=== PATIENT | female | born 1985 | race Caucasian/White ===

== ENCOUNTER 2020-02-22 19:02 | Outpatient (CLI) | payer OTHER, SELFPAY ==
[2020-02-22 19:36] VITALS: BMI 25.0
[2020-02-22 19:37] VITALS: TEMP 36.8
[2020-02-22 19:56] LABS: Bilirubin Urine Neg (Negative); Blood Urine Neg (Negative); Glucose Urine UA Norm (Normal); Ketones Urine Negative (Negative); Leukocyte Esterase Urine Negative (Negative); Nitrate Urine Negative (Negative); Protein Urine Neg (Negative); Specific Gravity, Urine 1.005 (1.005-1.030); Urine Appearance Clear (CLEAR); Urine Color Yellow (Yellow); Urobilinogen Urine Norm (Negative); pH Urine 7 (5-7)
[2020-02-22 19:57] VITALS: BP 124/63; PULSE 72; RESP 14
[2020-02-22 19:57] LABS: Add Urine Culture? No; Bacteria Urine TRACE /hpf; RBC Urine 0-4 /hpf (0-2); Squamous Epithelial Cell Urine 0-4 /hpf (0-5); WBC Urine 0-4 /hpf (0-5)
--- NOTE | 2020-02-22 20:03 | USR_ITS ---
PROCEDURE INFORMATION: Exam: US , Limited Exam date and time: 02/22/2020 9:09 PM Age: 34 years old Clinical indication: complicated by abdominal or pelvic pain; Left lower quadrant; Second trimester; Gestational age or lmp: [id number]; ; Additional info: Vaginal bleeding TECHNIQUE: Imaging protocol: Real-time ultrasound of the maternal uterus with image documentation. Exam focused on the clinical indication. COMPARISON: [facility] OB Follow up 07/19/2017 3:01 PM FINDINGS: Gestation: Single live intrauterine . heart rate: heart rate normal at 150 bpm. Placenta: Placenta is posterior and appears at least 8.9 mm from the internal cervical os on later exam images. MATERNAL: Cervix: Cervix is closed and normal length measuring 3.17 cm. US/US OB limited [id number] IMPRESSION: 1. Single live intrauterine . 2. Placenta is posterior and appears at least 8.9 mm from the internal cervical os on later exam images. 3. Cervix is closed and normal length measuring 3.17 cm. 4. heart rate normal at 150 bpm.
[2020-02-22 20:15] LABS: Basophils % 0.2 %; Eosinophils # 0.1 10^3/uL (0.0-0.8); Hematocrit 29.6 % (37.0-47.0); Hemoglobin 9.6 g/dL (11.5-15.3); Lymphocytes # 0.9 10^3/uL (0.8-4.8); Lymphocytes % 14.7 %; Mean Corpuscular HGB Conc 32.4 g/dL (30.0-36.0); Mean Corpuscular Hemoglobin 25.9 pg (28.0-34.0); Mean Corpuscular Volume 79.8 fL (81-99); Mean Platelet Volume 10.1 fL (7.4-10.4); Monocytes # 0.3 10^3/uL (0.2-0.9); Monocytes % 4.2 %; Neutrophils # 4.85 10^3/uL (1.8-7.7); Neutrophils % 78.4 %; Nucleated Red Blood Cells % 0 %; Platelet Count 171 10^3/cmm (130-400); Red Blood Count 3.71 10^6/uL (4.1-5.3); Red Cell Distribution Width 15.2 % (12.1-15.1); White Blood Count 6.2 10^3/uL (4.0-10.0)
[2020-02-22 21:34] VITALS: BP 121/65; PULSE 70; RESP 14; TEMP 36.8
[2020-02-23 06:44] VITALS: BP 121/65; PULSE 69
== END 2020-02-22 21:40 | disposition home or self-care (01) ==
LOC: OPOB 19:17 → OBGYN 21:33
PROVIDERS: PCP Obstetrics & Gynecology; Visit Provider Family Medicine
DX: O46.90 Antepartum hemorrhage, unspecified, unspecified trimester (principal); Z3A.00 Weeks of gestation of pregnancy not specified; R10.2 Pelvic and perineal pain
CPT/HCPCS: 36415; 76815; 81001; 85025; 99211

== ENCOUNTER 2020-07-11 23:30 | Inpatient (IN) | payer OTHER, SELFPAY ==
[2020-07-11 23:28] VITALS: BP 123/73; PULSE 83; TEMP 36.4
[2020-07-11 23:47] VITALS: RESP 17
[2020-07-11 23:48] VITALS: BMI 31.6
[2020-07-12] VITALS (57 sets, daily range): BP systolic 103–143; BP diastolic 53–72; PULSE 62–106; RESP 16; TEMP 36.3–36.8; O2SAT 92–100
[2020-07-12] MEDS: lactated ringers 1,000 ML 999 ML IV ×2 (00:05→01:06)
[2020-07-12 00:36] LABS: Basophils % 0.3 %; Eosinophils # 0.1 10^3/uL (0.0-0.8); Eosinophils % 0.6 %; Hematocrit 33.5 % (37.0-47.0); Hemoglobin 10.6 g/dL (11.5-15.3); Lymphocytes # 1.1 10^3/uL (0.8-4.8); Lymphocytes % 10.2 %; Mean Corpuscular HGB Conc 31.6 g/dL (30.0-36.0); Mean Corpuscular Hemoglobin 24.3 pg (28.0-34.0); Mean Corpuscular Volume 76.8 fL (81-99); Mean Platelet Volume 10.2 fL (7.4-10.4); Monocytes # 0.6 10^3/uL (0.2-0.9); Monocytes % 5.3 %; Neutrophils # 9.14 10^3/uL (1.8-7.7); Neutrophils % 82.3 %; Nucleated Red Blood Cells % 0 %; Platelet Count 183 10^3/cmm (130-400); Red Blood Count 4.36 10^6/uL (4.1-5.3); Red Cell Distribution Width 15.5 % (12.1-15.1); White Blood Count 11.1 10^3/uL (4.0-10.0)
--- NOTE | 2020-07-12 01:00 | ANES.PREANE2 ---
Pre-Anesthetic Assessment Pre-Anesthetic Assessment: Height/Weight: Height 1.65 m Weight 86.183 kg Temp Pulse Resp BP Pulse Ox 97.5 F L 68 17 107/56 92 07/12/20 02:12 07/12/20 02:25 07/11/20 23:47 07/12/20 02:22 07/12/20 02:25 Preop Diagnosis: IUP Was Beta Mica taken within 24 hours: N/A Was Clonidine taken within 24 hours: N/A Social: Social History: No alcohol and No tobacco Exam: Pre-Anes Outpt Exam: alert, oriented x 3 and clear to auscultation bilaterally Airway: Submandibular: WNL Cervical ROM: WNL MP: 1 History/ROS: No significant history except as noted Pulmonary: Pulmonary: None reported CV/HEM: CV/HEM: None reported : : None reported Hepatic: Hepatic: None reported GI: GI: None reported Metabolic: Metabolic: None reported Musc/skel: Musc/skel: None reported Neuropsych: Neuropsych: None reported Anesthetic Plan: ASA status: 1 Anesthesia: Anesthesia Evaluation Risk of > 500 ml blood loss (7ml/kg in children): No Meds/Allergies Current Medications: Current Medications Generic Name Dose Route Start Last Admin Trade Name Freq PRN Reason Stop Dose Admin Ropivacaine 200 mg in 100 mls @ 13 mls/hr 07/11/20 23:45 07/12/20 01:45 Naropin Premix EPIDURAL 13 mls/hr .[id number] JESSICA Administration Lactated Ringer's 1,000 mls @ 999 m ls/hr 07/12/20 00:05 07/12/20 00:05 Lactated Ringers IV 999 mls/hr .Q1H1M PRN Administration See label comment s Lactated Ringer's 1,000 mls @ 125 m ls/hr 07/12/20 01:05 07/12/20 01:33 Lactated Ringers IV 125 mls/hr .Q8H PRN Infusion labor PFS Anesthesia Female Reproductive History: : 4 Data Anesthesia CBC & Chem 7: 07/11/20 23:55 Other Labs: Laboratory Results - last 48 hr 07/11/20 23:55 WBC 11.1 H RBC 4.36 Hgb 10.6 L Hct 33.5 L MCV 76.8 L MCH 24.3 L MCHC 31.6 RDW 15.5 H Plt Count 183 MPV 10.2 Neut % (Auto) 82.3 Lymph % (Auto) 10.2 [place] % (Auto) 5.3 Eos % (Auto) 0.6 Baso % (Auto) 0.3 Neut # (Auto) 9.14 H Lymph # (Auto) 1.1 [place] # (Auto) 0.6 Eos # (Auto) 0.1 Baso # (Auto) 0.0 Nucleated RBC % (auto) 0 Nucleated RBCs # 0.0 Cardiac Studies: No Data to Display
--- NOTE | 2020-07-12 01:40 | ANES.PROC ---
Anesthesia Procedures Procedure/Date: 07/12/20 Epidural: Time Out Performed: Yes Consents Signed: Procedure Consent Consent: requested by attending/covering physician Lumbar Level: L4-L5 Epidural position: sitting Epidural procedure: sterile prep of area, 1% lidocaine to numb the area, 18 g needle, negative for paresthesia passed, neg for paresthesia, test dose given, 1.5% xylocaine 1:200k epi (3ml), placed PCEA, no systemic response, sterile dressing applied, L.U.D. no apparent complications and 0.2% Ropiavacaine @ mls/hr (13)
[2020-07-12] MEDS: dextrose 5%-lactated ringers 1,000 ML 999 ML IV (02:10)
[2020-07-12] MEDS: oxytocin 30 UNIT/500 ML BAG 600 UNIT IV (04:42)
--- NOTE | 2020-07-12 05:06 | P.PCNOB_ITS ---
Delivery Note: Date of delivery: July 12, 2020 This 34-year-old 4 now para 4 female went into active labor at home the evening prior to delivery. Check she began having contractions in the morning but the became stronger and closer together by early the morning of delivery. She arrived to [facility] OB department at approximately 5 cm dilated. She slowly dilated throughout the realtime captioner hours to complete cervical dilatation. She did receive epidural anesthesia. She had spontaneous rupture membranes of clear fluid followed by a bit of a D cells but that corrected itself. She delivered very quickly by spontaneous vaginal delivery healthy, viable female at 04 36. Upon delivery of the head, the mouth and nose were suctioned followed by delivery of the anterior shoulder followed by the posterior shoulder without problems. The infant was suctioned again and then placed on mother's abdomen where after approximately 1 minute the cord was clamped and the 's father cut the cord. There was no nuchal cord and the cord had 3 blood vessels. The placenta delivered spontaneously at 04 42 without problems. There was a midline second-degree vaginal and perineal laceration which was repaired using Vicryl suture and layered surgical closure. The weighed 8 pounds 2 ounces with Apgars of 8 and 10 at 1 and 5 minutes respectively. There were no complications and presently mother and are doing well. Pre-Delivery Course: This patient was followed by this physician throughout her entire course without problems or concerns. Maternal blood type was O+ with antibody screen negative. Hepatitis B hepatitis C, RPR and HIV were negative. Rubella was immune and group B strep and Covid were negative. Delivery: Spontaneous vaginal delivery. Post-Delivery Status: Patient is doing well and will be followed for routine postdelivery course. A&P Assessment and plan (1) Normal spontaneous vaginal delivery: Patient is doing quite well and plan to follow routine postdelivery care. We will adjust orders as necessary. Status: Acute Coding Level of Care Code Acute Superintendent Overhead Distribution for Estefany Cox Diagnoses Normal spontaneous vaginal delivery O80
[2020-07-12] MEDS: ibuprofen 800 mg tablet PO ×3 (09:05→21:24)
[2020-07-12] MEDS: docusate sodium 100 mg Capsule PO ×2 (09:05→19:27)
[2020-07-12] MEDS: prenatal vitamin Capsule 1 CAP PO (09:05)
[2020-07-12] MEDS: benzocaine-menthol 78 gm Canister 1 SPRAY TOPICAL (09:05)
[2020-07-12 18:32] LABS: Hematocrit 32.3 % (37.0-47.0); Hemoglobin 10.1 g/dL (11.5-15.3); Mean Corpuscular HGB Conc 31.3 g/dL (30.0-36.0); Mean Corpuscular Hemoglobin 24.3 pg (28.0-34.0); Mean Corpuscular Volume 77.6 fL (81-99); Mean Platelet Volume 10.4 fL (7.4-10.4); Platelet Count 187 10^3/cmm (130-400); Red Blood Count 4.16 10^6/uL (4.1-5.3); Red Cell Distribution Width 15.8 % (12.1-15.1); White Blood Count 9.7 10^3/uL (4.0-10.0)
[2020-07-13 04:09] VITALS: BP 116/56; PULSE 53; TEMP 36.1
--- NOTE | 2020-07-13 07:25 | PM.OBGYDC ---
Discharge Providers AUTOMOBILE WRECKER Date of Admission: 07/11/20 23:30 Date of Discharge: 07/13/20 Attending Provider at Admission: Lyle Matthews MD Attending Provider at Discharge: Lyle Matthews MD Primary Care Provider: [facility] Diagnoses at Discharge Discharge Diagnosis (1) Normal spontaneous vaginal delivery: Status: Acute Reason for Visit Reason for Visit: Contractions Hospital Course Hospital Course Patient delivered by spontaneous vaginal delivery early yesterday morning. She has done extremely well since that time with just mild lochia. The is breast-feeding well and actually her cluster fed last night. The patient is ambulating well and tolerating regular diet and is felt to be stable for discharge home. Information Peripartum Data: Infant Delivery Method: Vaginal Physical Exam Const: COMMON NORMALS: no acute distress, healthy appearing and well nourished Resp: COMMON NORMALS: normal respiratory effort, No retractions and No use of accessory muscles Cardio: COMMON NORMALS: regular rate and regular rhythm RATE: regular rate RHYTHM: regular rhythm GI: COMMON NORMALS: Normal to inspection, nondistended, normoactive bowel sounds present and non-tender (Fundus reported is firm below the umbilicus.) Extremity: COMMON NORMALS: normal to inspection, full ROM and no pedal edema Neuro: COMMON NORMALS: no focal motor deficits and no sensory deficits noted Psych: COMMON NORMALS: mental status grossly normal, Normal thought process present, cooperative and normal affect THOUGHT PROCESS: Normal thought process present Urinary Catheter Management^: Cramer Latex: Cath Placed During This Visit: yes, but has since been removed by the nurse Reason for Continuing Indwelling Catheter: Other Urinary Catheter Date of Insertion: 07/12/20 Urinary Catheter Time of Insertion: 02:00 Date Urinary Catheter Removed: 07/12/20 Time Urinary Catheter Discontinued: 04:30 Discharge Data Data Completed and Pending: Labs from last 24 hours 07/12/20 17:50 WBC 9.7 RBC 4.16 Hgb 10.1 L Hct 32.3 L MCV 77.6 L MCH 24.3 L MCHC 31.3 RDW 15.8 H Plt Count 187 MPV 10.4 Vitals: Last Vital Signs Temp 97.0 F L 07/13/20 04:09 Pulse 53 L 07/13/20 04:09 Resp 16 07/12/20 22:37 BP 116/56 07/13/20 04:09 Pulse Ox 98 03/15/21 19:20 Discharge Plan Discharge Patient Disposition: Home Condition: Stable Prescriptions: New docusate sodium [DOK] 100 mg Capsule 100 mg PO BID Qty: 60 RF: 1 ibuprofen 800 mg Tablet 800 mg PO TID Qty: 90 RF: 2 Continued PNV cmb#[id number]-ferrous fumarate-FA [] 28 mg iron- 800 mcg Tablet 1 tab PO DAILY RF: 0 ferrous sulfate [iron] 325 mg (65 mg iron) Tablet 325 mg PO DAILY RF: 0 Discharge Orders: Discharge Order (Routine); Ordered 07/13/20 Ordered By: Lyle Matthews Referrals: Lyle Matthews MD [Physician] - 6 Weeks Discharge Diet: Usual diet Discharge Activity: Resume usual activity Patient Instructions: Pre-eclampsia and Eclampsia (DC), Bleeding (DC), OB Discharge Report, OB Anesthesia Instructions, OB Food/Drug Interaction Guide, OB Home Care, OB Proud Parent Packet, OB Vaginal Deliveries Discharge Attestations AUTOMOBILE WRECKER Time Spent in Discharge Care*: less than 30 min Specific Discharge Activities: Specific discharge activities: educating patient, documenting/other paperwork and evaluating patient/reviewing data Coding Level of Care Code Acute Test Eng for Chg Fwd Diagnoses Normal spontaneous vaginal delivery O80
[2020-07-13] MEDS: ibuprofen 800 mg tablet PO (08:33)
[2020-07-13] MEDS: prenatal vitamin Capsule 1 CAP PO (08:33)
[2020-07-13] MEDS: docusate sodium 100 mg Capsule PO (08:33)
[2020-07-13 09:13] VITALS: BP 117/64; PULSE 69; TEMP 36.2
== END 2020-07-13 09:38 | disposition home or self-care (01) | DRG 807 ==
LOC: OPOB 07-12 00:07 → OBGYN 07-12 00:07
PROVIDERS: Admitting Provider Family Medicine; Visit Provider Family Medicine
DX: O70.1 Second degree perineal laceration during delivery (principal); Z37.0 Single live birth; Z3A.39 39 weeks gestation of pregnancy
CPT/HCPCS: 12345; 36415; 51702; 59025; 59409; 85025; 85027; 99211; J2795

== ENCOUNTER 2021-01-03 18:07 | Outpatient (CLI) | payer OTHER, SELFPAY ==
[2021-01-03 20:11] LABS: SARS Covid-2 Antigen Positive (Negative)
== END 2021-01-03 18:08 | disposition home or self-care (01) ==
LOC: OPOB 19:38
PROVIDERS: Visit Provider Family Medicine
DX: O26.899 Other specified pregnancy related conditions, unspecified trimester (principal); Z3A.00 Weeks of gestation of pregnancy not specified; Z20.822 Contact with and (suspected) exposure to COVID-19
CPT/HCPCS: 87426

== ENCOUNTER 2023-09-13 14:00 | Outpatient (CLI) | payer OTHER, SELFPAY | END 2023-09-13 14:01 | disposition home or self-care (01) | LOC: SPT 14:01 | PROVIDERS: Visit Provider Student in an Organized Health Care Education/Training Program | DX: S62.92XD Unspecified fracture of left hand, subsequent encounter for fracture with routine healing (principal); X58.XXXD Exposure to other specified factors, subsequent encounter | CPT/HCPCS: 97760; L3807 ==

== ENCOUNTER 2024-02-05 12:54 | Observation (INO) | payer OTHER, SELFPAY ==
[2024-01-14 10:20] LABS: Add Urine Microscopic? NO
[2024-01-14 10:24] LABS: Basophils % 0.3 %; Eosinophils # 0.1 10^3/uL (0.0-0.8); Eosinophils % 0.9 %; Hematocrit 36.7 % (36-47); Lymphocytes # 1.2 10^3/uL (0.8-4.8); Lymphocytes % 18.1 %; Mean Corpuscular Hemoglobin 26.7 pg (27-33); Mean Corpuscular Volume 80.8 fl (85-98); Mean Platelet Volume 9.4 fL (7.4-10.4); Monocytes # 0.4 10^3/uL (0.2-0.9); Neutrophils # 5.08 10^3/uL (1.8-7.7); Nucleated Red Blood Cells % 0 %; Platelet Count 206 10^3/cmm (157-399); Red Blood Count 4.54 10^6/uL (3.85-5.65); Red Cell Distribution Width 14.4 % (12.1-15.1); White Blood Count 6.86 10^3/uL (3.29-11.43)
[2024-01-14 10:26] LABS: Bilirubin Urine Neg (Negative); Blood Urine Neg (Negative); Glucose Urine UA Norm (Normal); Ketones Urine Negative (Negative); Leukocyte Esterase Urine Negative (Negative); Nitrate Urine Negative (Negative); Protein Urine Neg (Negative); Urine Appearance Clear (CLEAR); Urine Color Yellow (Yellow); Urobilinogen Urine Norm (Negative); pH Urine 8 (5-7)
[2024-01-14 10:27] LABS: Charge for UA Resulting for Rev
[2024-01-14 10:40] LABS: Alanine Aminotransferase 16 U/L (0-33); Albumin Level 4.3 g/dL (3.5-5.2); Alkaline Phosphatase 67 U/L (35-105); Anion Gap 12.5 (5-19); Aspartate Amino Transferase 18 U/L (0-32); Blood Urea Nitrogen 11 mg/dL (6-20); Calcium 8.7 mg/dL (8.5-10.5); Carbon Dioxide 26 mmol/L (22-29); Chloride 103 mmol/L (98-107); Globulin 2.7 g/dL (1.3-4.6); Glomerular Filtration Rate 81.2 mL/min (90-130); Glucose 96 mg/dL (65-115); Osmolality Calculated 283 mOsm/kg (285-295); Potassium 4.5 mmol/L (3.5-5.1); Sodium 137 mmol/L (136-145); Total Bilirubin 0.4 mg/dL (0.15-1.2)
--- NOTE | 2024-01-14 12:26 | P.ANESASSM_ITS ---
Pre-Anesthetic Assessment Height/Weight: Height 5 ft 5 in Preop Diagnosis: Desire permanent sterilization, stress urinary incontinence, rectocele Operation Date: 02/05/24 08:30 Proposed Procedures p Laparoscopic Salpingectomy 51915, 83394, 04869, Z30.2, N39.3, N81.6(Bilateral) - Herminio Cruz MD s Midurethral sling(Not Applicable) - MD hu Charles Perineorrhaphy(Not Applicable) - Herminio Cruz MD Social No alcohol and No tobacco Exam alert, oriented x 3, clear to auscultation bilaterally and regular rate & rhythm Airway Submandibular: within normal limits Cervical ROM: within normal limits Mallampati: Class II Dentition: full Anesthetic Plan ASA status: 1 Anesthesia: General Other: No history of anesthesia Plan to be n.p.o. after midnight Labs 01/14/2024 reviewed and assessable for surgery Patient denies any pulmonary or cardiac issues METs greater than 4, patient is a current OB nurse at [employer] Plan for GETA Medications/Allergies Home Medications Medication Instructions Recorded Confirmed Last Taken Type No Known Home Medications 09/20/23 01/14/24 Unknown History Allergies Allergy/AdvReac Type Severity Reaction Status Date / Time No Known Allergies Allergy Verified 01/14/24 09:56 [facility] Anesthesia Family History Grandfather Heart disease Mother Hypertension Brother Hypertension Sister Hypertension Denies family history of Colon cancer Ovarian cancer Diabetes Hyperlipidemia Breast cancer Uterine cancer Thyroid disease Stroke Social History Smoking and tobacco/nicotine status: never used tobacco/nicotine Data Anesthesia 01/14/24 10:10 01/14/24 10:10 Short CBC 01/14/24 Range/Units 10:10 WBC 6.86 (3.29-11.43) 10^3/uL Hgb 12.10 (11.27-16.99) g/dL Hct 36.7 (36-47) % MCV 80.8 L (85-98) fl Plt Count 206 (157-399) 10^3/cmm Neut % (Auto) 74.0 % Neut # (Auto) 5.08 (1.8-7.7) 10^3/uL BMP 01/14/24 10:10 Sodium 137 Potassium 4.5 Chloride 103 Carbon Dioxide 26 BUN 11 Creatinine 0.8 Glucose 96 Calcium 8.7 Liver Function 01/14/24 Range/Units 10:10 Total Bilirubin 0.4 (0.15-1.2) mg/dL AST 18 (0-32) U/L ALT 16 (0-33) U/L Alkaline Phosphatase 67 (35-105) U/L Albumin 4.3 (3.5-5.2) g/dL Urine 01/14/24 Range/Units 10:10 Urine Color Yellow (Yellow) Urine Appearance Clear (CLEAR) Urine pH 8 A (5-7) Ur Specific [place] 1.010 (1.005-1.030) Urine Protein Neg (Negative) Urine Glucose (UA) Norm (Normal) Urine Ketones Negative (Negative) Urine Nitrate Negative (Negative) Urine Bilirubin Neg (Negative) Ur Leukocyte Esterase Negative (Negative) Cardiac Studies: 2 No Data to Display
[2024-02-05] VITALS (14 sets, daily range): BP systolic 98–133; BP diastolic 51–77; PULSE 53–90; RESP 14–18; TEMP 36.2–37.2; O2SAT 96–100
[2024-02-05] MEDS: sodium chloride 0.9% 500 ML IV (08:50)
[2024-02-05] MEDS: sodium chloride 0.9% 1,000 ML 30 ML IV (08:50)
[2024-02-05] MEDS: ceFAZolin 2,000 mg SDV 2000 MG IVP (09:00)
[2024-02-05] MEDS: scopolamine 1.5 Patch 1 PATCH TRANSDERMA (09:03)
[2024-02-05] MEDS: metroNIDAZOLE IV 500 MG/100 ML PREMIX 100 MG IV (09:31)
[2024-02-05 09:36] LABS: OR HCG Qualitative Urine Negative (Negative)
--- NOTE | 2024-02-05 09:38 | ANES.PAUD2 ---
Pre-Anesthetic Update Pre-Anesthetic Assessment: Date of Surgery/Procedure: 02/05/24 Preop Diagnosis: Desire permanent sterilization, stress urinary incontinence, rectocele Proposed Procedure: Operation Date: 02/05/24 10:05 Proposed Procedures p Laparoscopic Salpingectomy 06835, 60342, 54853, Z30.2, N39.3, N81.6(Bilateral) - Herminio Cruz MD s Midurethral sling(Not Applicable) - Herminio Cruz MD s Perineorrhaphy(Not Applicable) - Herminio Cruz MD Any changes to Pre-Anesthetic Assessment?: No Last Intake: Intake Last Liquid Date 02/04/24 Last Liquid Time 23:00 Last Solid Date 02/04/24 Last Solid Time 21:30 Vitals: Temperature 97.7 F 02/05/24 08:35 Temperature Source Temporal Artery S can 02/05/24 08:35 Pulse Rate 73 02/05/24 08:35 Respiratory Rate 16 02/05/24 08:35 Blood Pressure 133/77 02/05/24 08:35 Blood Pressure Zohra n 95 02/05/24 08:35 Pulse Oximetry 100 02/05/24 08:35 Oxygen Delivery Me thod Room Air 02/05/24 08:35 Exam: Pre-Anes Outpt Exam: alert, oriented x 3, clear to auscultation bilaterally and regular rate & rhythm Cardiac Studies: No Data to Display
--- NOTE | 2024-02-05 10:11 | W.PM.OPSUD ---
Surgery/Procedure H&P Update DATE OF PROCEDURE: February 05, 2024 DATE H&P PERFORMED: 01/14/24 H&P UPDATE INFORMATION: I have reviewed H&P completed within last 30 days, I have examined patient prior to procedure and No changes to prior documentation PREOP DIAGNOSIS: Desire permanent sterilization, stress urinary incontinence, rectocele PLANNED PROCEDURE: Operation Date: 02/05/24 10:05 Proposed Procedures p Laparoscopic Salpingectomy 26876, 54644, 61917, Z30.2, N39.3, N81.6(Bilateral) - Herminio Cruz MD s Midurethral sling(Not Applicable) - Herminio Cruz MD s Perineorrhaphy(Not Applicable) - Herminio Cruz MD
[2024-02-05] MEDS: BUPivacaine 0.5% INJ 10 mL INJECTION (11:44)
[2024-02-05] MEDS: lidocaine-epi 2% PF 1:200,000 20 mL SDV XX (11:45)
--- NOTE | 2024-02-05 12:57 | W.PM.BPON ---
Date of Procedure: 02/05/24 Surgeon: Herminio Cruz MD Investor Relations Manager(s): Procedure(s) performed: Laparoscopic bilateral salpingo-oophorectomy, umbilical hernia repair, posterior colporrhaphy with perineorrhaphy, cystoscopy Findings of the procedure(s): Rectocele Estimated blood loss: 75 mL Specimen(s) removed: Left and right fallopian tubes Post-operative diagnosis: Postop
--- NOTE | 2024-02-05 12:58 | PM.OP ---
Operative Report Date of procedure: February 05, 2024 Pre-op diagnosis: Desire permanent sterilization Stress urinary incontinence Rectocele stage II Post-op diagnosis: same Procedure done: Laparoscopic bilateral salpingectomy Mid urethral sling Posterior colporrhaphy with perineorrhaphy Cystoscopy Implants: Coloplast Altis mid urethral sling Specimens removed/disposition: Left and right fallopian tube Surgeon: Herminio Cruz MD Estimated blood loss (mL): 75 IV fluids (mL): 900 Urine output (mL): 500 Procedure: After informed consent, the patient was taken to the operating room where general anesthesia was administered. She was placed in the dorsal lithotomy position and prepped and draped in sterile fashion. Pre-Procedure Time-Out verifying the correct patient identity, correct procedure verified with consent, correct site and side, correct patient position, availability of correct implants and any special equipment or requirements was performed and acknowledge by the OR team. The patient was examined under anesthesia and found to have a normal uterus with normal adnexa. A weighted speculum was placed in the vagina, and the anterior lip of cervix was grasped with the single toothed tenaculum. A uterine manipulator was advanced into the endocervical canal and uterus. The tenaculum was removed after uterine manipulator was secured. The speculum was removed from the vagina. An intraumbilical incision was made with a scalpel. While tenting up on the abdomen, a Verres needle was admitted into the intra-abdominal cavity. A saline drop test was performed and noted to be within normal limits. Pneumoperitoneum was attained with 4 liters of carbon dioxide. The Verres needle was removed. A 5 mm Opitc view trocar and sleeve were admitted into the abdomen and laparoscopic confirmation of location was achieved. A second incision was made 3 cm above the symphysis pubis, and a 5 mm trocar sleeves were admitted into the abdomen under direct laparoscopic visualization without complication. A survey revealed normal abdominal anatomy with the exception of string adhesion to the right lower anterior abdominal wall. A 5 mm blunt probe was advanced through the second trocar sleeve, and light manipulation of ovaries and uterus to assess the posterior aspects was performed. The pelvic survey shows normal uterus, left and right adnexa. The left ovary was noted with a follicular cyst. The string adhesion was fulgurated and transected with good hemostasis with the Ligasure. The patient was placed into Trendelenburg position. The fallopian tubes were inspected bilaterally and the fimbriated ends of the fallopian tubes were visualized bilaterally. Attention was then directed to the right side. The fallopian tube and mesosalpinx were grasped and the underlying mesosalpinx was cauterized and cut using the Ligasure device. Serial cauterization and cutting was used to separate the fallopian tube from the underlying mesosalpinx until it could be amputated cutting it approximated 2 cm from the cornua. Attention was then turned to the contralateral fallopian tube, which was removed in similar fashion. Both specimens were removed through the trocar and sent to pathology. The instruments were removed. The suprapubic trocar port was removed under direct visualization insuring good hemostasis. The carbon dioxide was allowed to escape from the abdomen. The intraumbilical trocar sleeve was withdrawn under visualization with laparoscope in the sleeve to insure hemostasis. Umbilical hernia repair was performed. The skin incisions were closed with 3-O Monocryl subcuticular stich and Dermabond. The instruments were removed from the vagina, and excellent hemostasis was noted. Then proceeded to perform the mid urethral sling. The anterior vaginal mucosa beneath the midurethra was infiltrated with 2% lidocaine with epinephrine. A vertical midline incision was made beneath the midurethra, nearly 1.5 cm length. Careful submucosal dissection was performed bilaterally up to the interior portion of the inferior pubic ramus. The insertion of adductor longus tendon on the patient?s pubic ramus was identified as reference land danette. Palpated the notch along the internal edge of ischiopubic ramus where the adductor longus tendon and the inferior pubic ramus meet. The Altis single incision sling (SIS) was selected. Then the needle of the SIS inserted aiming at the location of this notch. One of the integrated self-fixating tips place onto the needle by sliding it over the end of the needle. The needle/sling assembly was inserted toward the location of identified reference notch making sure that the flat of the handle is perpendicular to the desired path. The needle was tracked along the posterior surface of the ischiopubic ramus until the midline danette on the mesh is approximately at the midline position under the urethra. The needle was removed and the same was repeated on the contralateral side until the appropriate sling tension under the urethra was achieved ensuring that the mesh lays flat. The needle was removed and vaginal incision was closed in a running interlocking fashion with 2-0 Vicryl. A dilute 2% lidocaine with epinephrine solution was infiltrated under the posterior vaginal mucosa midline and into the perineal body. An inverted triangle incision was cut in the perineum. The posterior vaginal wall was opened vertically and midline up to the apex of the rectocele. The cut edges were held and splayed laterally with a series of Allis clamp. The open vaginal mucosa was then dissected laterally with a combination of sharp and blunt dissection, exposing the perirectal fascia. The perirectal fascia was then reapproximated with interrupted #2-0 Vicryl sutures to draw the lateral folds together and tuck the rectocele back. Deep interrupted sutures of #0 Vicryl were used to reapproximate the fibers of the levator ani muscles. The excess vaginal mucosa was trimmed. The posterior vaginal wall was closed with a running locked #0 Vicryl to the hymenal tags. The superficial perineal muscles were closed with running unlocked #0 Vicryl and the perineal skin was closed with running subcuticular #2-0 Vicryl. Then the Cramer catheter was removed and cystoscope was inserted. The bladder was filled with sterile water. Complete evaluation of the bladder mucosa was performed noting no lacerations, dimpling, tears, bleeding of the mucosa or muscular layers. Both ureteral orifices were identified. Prompt excretion of urine from both ureteral orifices was noted. Cystoscope was withdrawn. The Cramer catheter was replaced. Excellent hemostasis was obtained. A vaginal pack is placed overnight as postoperative support for the vaginal tissues after graft placement and closure of vaginal incisions. Sponge, lap, needle, and instrument counts were correct times three. The patient was taken to the recovery room, awake and in stable condition.
--- NOTE | 2024-02-05 13:20 | ANE.PACU2 ---
Inpatient post-anesthesia follow up: Airway intact: Yes Vital signs: Temperature 97.2 F Pulse Rate 90 Respiratory Rate 16 Blood Pressure 126/70 Pulse Oximetry 100 Oxygen Delivery Me thod Room Air Oxygen Flow Rate 6 Fraction of Inspir ed Oxygen Hydration adequate: Yes Nausea and vomiting: No Pain level: 1 Mental status: Baseline
[2024-02-05] MEDS: dextrose 5%-lactated ringers 1,000 ML 125 ML IV (13:46)
[2024-02-05] MEDS: ketorolac 30 mg/mL INJ IVP ×2 (18:31→23:38)
[2024-02-05] MEDS: docusate sodium 100 mg Capsule PO (18:32)
[2024-02-05] MEDS: HYDROcodone-acetaminophen 5-325 mg Tablet PO (23:38)
[2024-02-06 04:00] VITALS: BP 113/71; PULSE 58; RESP 14; TEMP 36.6; O2SAT 98
[2024-02-06 05:39] LABS: Hematocrit 33.3 % (36-47); Mean Corpuscular HGB Conc 32.4 g/dL (30-55); Mean Corpuscular Hemoglobin 27.4 pg (27-33); Mean Corpuscular Volume 84.5 fl (85-98); Platelet Count 209 10^3/cmm (157-399); Red Blood Count 3.94 10^6/uL (3.85-5.65); Red Cell Distribution Width 14.3 % (12.1-15.1); White Blood Count 8.45 10^3/uL (3.29-11.43)
--- NOTE | 2024-02-06 05:45 | PC.NURSE ---
This nurse removed vaginal packing at this time with minimal bleeding noted on dressing. Patient tolerated procedure well.
[2024-02-06] MEDS: ketorolac 30 mg/mL INJ IVP (06:45)
[2024-02-06 10:05] VITALS: BP 105/70; PULSE 60; RESP 16; TEMP 36.7
--- NOTE | 2024-02-06 14:35 | PM.OBGYDC ---
Discharge Providers ACTUARIAL TECHNICIAN Date of Admission: 02/05/24 12:54 Date of Discharge: 02/06/24 Attending Provider at Admission: Herminio Cruz MD Attending Provider at Discharge: Herminio Cruz MD Reason for Visit Reason for Visit: Z30.2, N93.3, N81.6 Hospital Course Hospital Course Mrs. Szymanski 38-year-old female G4, P4 with desire for panel sterilization and a history of urinary stress incontinence, small umbilical hernia and rectocele stage II. Was admitted for planned laparoscopic bilateral salpingectomy, umbilical hernia repair, mid urethral sling, posterior colporrhaphy with perineorrhaphy. The procedures were performed without complication. Overnight observation was uneventful. She is afebrile and hemodynamically stable postoperative day 1. Tolerating diet well. Ambulating without difficulty. Pain under control with medication. PVR within normal limits after 3 voiding trials. Patient was counseled regarding weight lifting limitations to 10 pounds and pelvic rest for 6 weeks (no sex, no tampons, no vaginal douches). Return to the emergency room if any fever, increased bleeding or pain. Physical Exam Narrative: GA: Alert and oriented ?3. HEENT: WNL. Heart: Regular rate and rhythm. Lungs: Clear to auscultation bilaterally. Abdomen: Bowel sounds present, nontender, minimal tenderness, incision clean and dry, no redness, pain or edema. [employer]: spotting bleeding. Extremities: No edema, no cyanosis, no calves pain. Urinary Catheter Management: Cramer: Cath Placed During This Visit: yes, but has since been removed by the nurse Reason for Continuing Indwelling Catheter: Decision to DC Catheter Urinary Catheter Date of Insertion: 02/05/24 Urinary Catheter Time of Insertion: 10:53 Date Urinary Catheter Removed: 02/06/24 Time Urinary Catheter Discontinued: 05:45 History History History 4 Term 4 0 Miscarriages/Ectopic 0 Living Children 4 Discharge Data Studies Completed and Pending Pending at discharge Category Date Time Status Pathology: Surgical [PTH] Routine Pth 02/05/24 12:53 Received Laboratory Results WBC 8.45 10^3/uL (3.29-11.43) 02/06/24 05:20 RBC 3.94 10^6/uL (3.85-5.65) 02/06/24 05:20 Hgb 10.80 g/dL (11.27-16.99) L 02/06/24 05:20 Hct 33.3 % (36-47) L 02/06/24 05:20 MCV 84.5 fl (85-98) L 02/06/24 05:20 MCH 27.4 pg (27-33) 02/06/24 05:20 MCHC 32.4 g/dL (30-55) 02/06/24 05:20 RDW 14.3 % (12.1-15.1) 02/06/24 05:20 Plt Count 209 10^3/cmm (157-399) 02/06/24 05:20 MPV 10.0 fL (7.4-10.4) 02/06/24 05:20 Neut % (Auto) 74.0 % 01/14/24 10:10 Lymph % (Auto) 18.1 % 01/14/24 10:10 [place] % (Auto) 6.0 % 01/14/24 10:10 Eos % (Auto) 0.9 % 01/14/24 10:10 Baso % (Auto) 0.3 % 01/14/24 10:10 Neut # (Auto) 5.08 10^3/uL (1.8-7.7) 01/14/24 10:10 Lymph # (Auto) 1.2 10^3/uL (0.8-4.8) 01/14/24 10:10 [place] # (Auto) 0.4 10^3/uL (0.2-0.9) 01/14/24 10:10 Eos # (Auto) 0.1 10^3/uL (0.0-0.8) 01/14/24 10:10 Baso # (Auto) 0.0 10^3/uL (0.0-0.1) 01/14/24 10:10 Nucleated RBC % (auto) 0 % 01/14/24 10:10 Nucleated RBCs # 0.0 /100WBC 01/14/24 10:10 Sodium 137 mmol/L (136-145) 01/14/24 10:10 Potassium 4.5 mmol/L (3.5-5.1) 01/14/24 10:10 Chloride 103 mmol/L (98-107) 01/14/24 10:10 Carbon Dioxide 26 mmol/L (22-29) 01/14/24 10:10 Anion Gap 12.5 (5-19) 01/14/24 10:10 BUN 11 mg/dL (6-20) 01/14/24 10:10 Creatinine 0.8 mg/dL (0.5-0.9) 01/14/24 10:10 GFR Calculation 81.2 mL/min (90-130) L 01/14/24 10:10 Glucose 96 mg/dL (65-115) 01/14/24 10:10 Calculated Osmolality 283 mOsm/kg (285-295) L 01/14/24 10:10 Calcium 8.7 mg/dL (8.5-10.5) 01/14/24 10:10 Total Bilirubin 0.4 mg/dL (0.15-1.2) 01/14/24 10:10 AST 18 U/L (0-32) 01/14/24 10:10 ALT 16 U/L (0-33) 01/14/24 10:10 Alkaline Phosphatase 67 U/L (35-105) 01/14/24 10:10 Total Protein 7.0 g/dL (6.6-8.7) 01/14/24 10:10 Albumin 4.3 g/dL (3.5-5.2) 01/14/24 10:10 Globulin 2.7 g/dL (1.3-4.6) 01/14/24 10:10 Urine Color Yellow (Yellow) 01/14/24 10:10 Urine Appearance Clear (CLEAR) 01/14/24 10:10 Urine pH 8 (5-7) A 01/14/24 10:10 Ur Specific [place] 1.010 (1.005-1.030) 01/14/24 10:10 Urine Protein Neg (Negative) 01/14/24 10:10 Urine Glucose (UA) Norm (Normal) 01/14/24 10:10 Urine Ketones Negative (Negative) 01/14/24 10:10 Urine Blood Neg (Negative) 01/14/24 10:10 Urine Nitrate Negative (Negative) 01/14/24 10:10 Urine Bilirubin Neg (Negative) 01/14/24 10:10 Urine Urobilinogen Norm mg/dL (Negative) 01/14/24 10:10 Ur Leukocyte Esterase Negative (Negative) 01/14/24 10:10 Amorphous Sediment Not Reportable 01/14/24 10:10 Urine HCG, Qual Negative (Negative) 02/05/24 08:29 Blood Type O Positive 02/05/24 08:45 Rho(D) Type Rh positive 02/05/24 08:45 Antibody Screen Negative 02/05/24 08:45 Vitals Last Vital Signs Temp 98.0 F 02/06/24 10:05 Pulse 60 02/06/24 10:05 Resp 16 02/06/24 10:05 BP 105/70 02/06/24 10:05 Pulse Ox 98 02/06/24 04:00 O2 Del Method Room Air 02/06/24 10:05 O2 Flow Rate 6 02/05/24 12:55 Results Labs OB ([facility]): Blood Type O Positive 02/05/24 Antibody Screen Negative 02/05/24 Hct 33.3 % (36-47) L 02/06/24 Hgb 10.80 g/dL (11.27-16.99) L 02/06/24 Rho(D) Type Rh positive 02/05/24 Plt Count 209 10^3/cmm (157-399) 02/06/24 Discharge Plan Discharge Patient Disposition: Home Condition: Stable Prescriptions: New acetaminophen 325 mg capsule 325 mg PO Q4H PRN (Reason: fever or pain) Qty: 60 0RF ibuprofen 800 mg tablet 800 mg PO TID PRN (Reason: pain) Qty: 60 0RF docusate sodium [Colace] 100 mg capsule 100 mg PO BID Qty: 60 0RF hydrocodone-acetaminophen 5-325 mg tablet 1 tab PO Q4H PRN (Reason: pain) Qty: 20 0RF metronidazole 500 mg tablet 500 mg PO BID 14 Days Qty: 28 0RF Discharge Orders: Discharge Order (Routine); Ordered 02/06/24 Ordered By: Herminio Cruz Referrals: Herminio Cruz MD [Physician] - 03/17/24 10:15 am (* Your 6 week post op appointment is with Dr. Cruz on 03/17/2024 at 10:15am) Suzy Oakes APN, WHNP [Nurse Practitioner] - 03/21/24 9:30 am (Your 2 week post op appointment is with Suzy Oakes on 02/19/2024 at 9:30am) Discharge Diet: Soft Mechanical Discharge Activity: Limit activity as instructed Patient Instructions: Acute Wound Care (DC), Salpingectomy (DC), Bladder Sling for Women (DC), Posterior Vaginal Repair (DC), Opioid Safety, Post Anesthesia Care Activity Restrictions/Additional Instructions: 1. Please call [facility] on next working day to make your post-operative appointment in 2 weeks. 2. Please stay home until you come back to the clinic on first post-hospatilization check up. 3. Please follow instructions on your medications CAREFULLY. 4. If you have abdominal incision, do not cover it unless dressing is necessary because of drainage. OK to shower, but avoid bath. Leave steri-strips until they fall off. If they are still on one week after surgery, you may remove them. 5. If you had vaginal surgery or vaginal repair, Dr. Cruz may instruct you to take SITZ bath. 6. Yellow, blood tinged odorous vaginal discharge is usually normal after hysterectomy or vaginal surgeries. 7. No SEXUAL INTERCOURSE, tampons, or douches until you are completely released from the post-operative care. 8. Avoid constipation by eating right and maybe using some Metamucil or Milk of Magnesia. 9. All prescription refills are given during the working hours. Please do no wait till it runs out. Call the clinic at [phone] before your medication runs out. The clinic will get in touch with your doctor to prescribe medications if necessary. 10. Please remain within 40 mile radius from our hospital because emergencies do happen now and then during the post-operative period. 11. If you have stairs at home, take one step at a time slowly and minimize the number of trips. It helps to stay in one floor for the next few days. No lifting except what you can lift by one hand until you are released from the post-operative care. 12. Driving is discouraged until you are well healed. It may be 3-4 weeks before you feel strong enough to drive. You should be able to turn and look through the rear window without pain and you should be able to push the brake pedal very hard without pain before you drive. No fast rules, but SAFETY should be your primary concern. DO NOT drive if you are on sedating medications such as narcotics. 13. Call the clinic (during working hours) to make urgent appointment or go to the Emergency room, if any of the following occurs: i. Vaginal bleeding becomes heavy, more than a period. ii. Incision becomes red and sore, or drains pus. iii. Your TEMPERATURE is over 100.4F or you have chill. iv. IV site becomes red and swollen (a little ``knot?? is usually OK) v. Persistent nausea and vomiting vi. Persistent constipation or diarrhea vii. Rash or allergic reaction to medications. Discharge Attestations ACTUARIAL TECHNICIAN Time Spent in Discharge Care*: greater than 30 min Coding Level of Care Code Acute Code for Chg Fwd
[2024-02-06 16:15] VITALS: BP 101/58; PULSE 60; RESP 16; TEMP 36.5; O2SAT 99
== END 2024-02-06 16:20 | disposition home or self-care (01) ==
LOC: OBGYN 12:54
PROVIDERS: Anesthesiology; Admitting Provider Obstetrics & Gynecology; Visit Provider Obstetrics & Gynecology
PROC: (CPT 58661; principal; 2024-02-05 09:55)
PROC: (CPT 57288; 2024-02-05 09:55)
PROC: 0HQ9XZZ Repair Perineum Skin, External Approach (ICD-10-PCS; CPT 58661; 2024-02-05 09:55)
DX: Z30.2 Encounter for sterilization (principal); N39.3 Stress incontinence (female) (male); N81.6 Rectocele
CPT/HCPCS: 58661; 57250; 51992; 36415; 51798; 80053; 81003; 81025; 85025; 85027; 86850; 86900; 88302; C1713; G0378; J0690; J1100; J1171; J1200; J1885; J2250; J2405; J2704; J2710; J3010; J3490; J7030; J7040; J7121